=== PATIENT | female | born 1955 ===

== ENCOUNTER 2024-10-20 07:06 | Inpatient (IN) | payer OTHER ==
[2024-10-12 13:57] LABS: COVID-19 AG NEGATIVE (NEGATIVE)
[~2024-10-20] VITALS: Ht 157.5 cm; Wt 66.7 kg
[~2024-10-20 07:06] MED LIST: CLONAZEPAM1 MG PO; HORIZANT300 MG PO; IRBESARTAN150 MG PO; METFORMIN HCL500 M3 PO; OZEMPIC1 MG/0.71; ROSUVASTATIN CA20 MG PO; SYNTHROID100 MCG PO; TOPROL XL25 M1 PO; ZETIA10 MG PO
[2024-10-20] MEDS ORDERED: PERCOCET 5-3251 EACH PO (14:46)
[2024-10-20] MEDS ORDERED: ZOFRAN8 MG PO (14:47)
[2024-10-20] MEDS ORDERED: MEDROLPACK PO (14:47)
[2024-10-20] MEDS ORDERED: COLACE100 MG PO (14:47)
[2024-10-20] MEDS ORDERED: VANCOMYCIN HCL 1,000 MG VIAL ONE ×3 (17:19→20:09)
[2024-10-20] MEDS ORDERED: CEFAZOLIN SODIUM 1,000 MG VIAL ONE (17:19)
[2024-10-20] MEDS ORDERED: FAMOtidine 20 MG TABLET PO SCH (17:44)
[2024-10-20] MEDS ORDERED: ENALAPRILAT DIHYDRATE 1.25 MG/ML VIAL IV PRN (17:45)
[2024-10-20] MEDS ORDERED: 0.9 % SODIUM CHLORIDE 1,000 ML IV SCH (17:45)
[2024-10-20] MEDS ORDERED: PROMETHAZINE HCL 50 MG/ML AMPUL IM PRN (17:45)
[2024-10-20] MEDS ORDERED: METHYLPREDNISOLONE ACETATE 80 MG/ML VIAL ONE ×3 (17:48→19:14)
[2024-10-20] MEDS ORDERED: HEMOSTATIC MATRIX WITH THROMBIN KIT TOP ONE (17:48)
[2024-10-20] MEDS ORDERED: METHYLPREDNISOLONE SOD SUCC 125 MG VIAL ONE ×3 (17:48→19:31)
[2024-10-20] MEDS ORDERED: ACETAMINOPHEN 500 MG GEL..CAP PO SCH (20:00)
[2024-10-20] MEDS ORDERED: MORPHINE SULFATE 4 MG/ML CARTRIDGE IV SCH (21:00)
[2024-10-20] MEDS ORDERED: VANCOMYCIN HCL 1,000 MG VIAL IV SCH (21:00)
[2024-10-20] MEDS ORDERED: MORPHINE SULFATE 4 MG/ML VIAL IV ONE (21:15)
[2024-10-20] MEDS ORDERED: ENALAPRILAT DIHYDRATE 1.25 MG/ML VIAL IV ONE (22:17)
[2024-10-21] MEDS ORDERED: SODIUM CHLORIDE 0.45 % 1,000 ML IV SCH
[2024-10-21] MEDS ORDERED: ACETAMINOPHEN 500 MG GEL..CAP PO ONE (00:14)
[2024-10-21] MEDS ORDERED: CEFAZOLIN SODIUM 1,000 MG VIAL ONE (00:14)
[2024-10-21] MEDS ORDERED: METHYLPREDNISOLONE SOD SUCC 125 MG VIAL IV SCH (01:00)
[2024-10-21] MEDS ORDERED: CEFAZOLIN SODIUM 1,000 MG in 0.9 % SODIUM CHLORIDE 50 ML IV SCH (01:00)
[2024-10-21 02:15] VITALS: BP 137/83; O2SAT 99
[2024-10-21] MEDS ORDERED: LEVOTHYROXINE SODIUM 100 MCG TABLET PO SCH (06:00)
[2024-10-21] MEDS ORDERED: OxyCODONE HCL 5 MG TABLET (ROXICODONE) PO SCH (06:01)
[2024-10-21] MEDS ORDERED: VANCOMYCIN HCL 1,000 MG VIAL ONE ×2 (06:55→15:57)
[2024-10-21 08:00] VITALS: BP 130/70; O2SAT 95
[2024-10-21] MEDS ORDERED: TAMSULOSIN HCL 0.4 MG CAP PO SCH ×2 (09:00)
[2024-10-21] MEDS ORDERED: METOPROLOL SUCCINATE 25 MG TAB.SR.24H PO SCH (09:00)
[2024-10-21] MEDS ORDERED: DOCUSATE SODIUM 100MG CAP PO SCH (09:00)
[2024-10-21] MEDS ORDERED: MetFORMIN HCL 500 MG TABLET PO SCH (09:00)
[2024-10-21] MEDS ORDERED: IRBESARTAN 150 MG TABLET PO SCH (09:00)
[2024-10-21 16:57] VITALS: BP 116/71; O2SAT 95
[2024-10-21] MEDS ORDERED: INSULIN LISPRO 1,000 UNIT/10 ML UNITS SUBCUTANEO PRN (22:00)
[2024-10-21] MEDS ORDERED: DEXTROSE 50 % IN WATER 0.5 G/ML VIAL IV PRN (22:00)
[2024-10-22 00:52] VITALS: BP 96/60; O2SAT 96
[2024-10-22 08:00] VITALS: BP 109/65; O2SAT 95
== END 2024-10-22 14:11 | disposition home or self-care (01) | DRG 473 ==
LOC: CIR.AMB 07:06 → SURH 21:09
PROVIDERS: ADMIT Orthopaedic Surgery Orthopaedic Surgery of the Spine; ATTEND Orthopaedic Surgery Orthopaedic Surgery of the Spine
PROC: 0RT30ZZ Resection of Cervical Vertebral Disc, Open Approach (ICD-10-PCS; 2024-10-20)
PROC: 07DS0ZZ Extraction of Vertebral Bone Marrow, Open Approach (ICD-10-PCS; 2024-10-20)
PROC: 4A1104G Monitoring of Peripheral Nervous Electrical Activity, Intraoperative, Open Approach (ICD-10-PCS; 2024-10-20)
PROC: 0RG20A0 Fusion of 2 or more Cervical Vertebral Joints with Interbody Fusion Device, Anterior Approach, Anterior Column, Open Approach (ICD-10-PCS; principal; 2024-10-20 15:15)
DX: M50.023 Cervical disc disorder at C6-C7 level with myelopathy (principal); M50.01 Cervical disc disorder with myelopathy, high cervical region; M50.021 Cervical disc disorder at C4-C5 level with myelopathy; M50.022 Cervical disc disorder at C5-C6 level with myelopathy